=== PATIENT | male | born 1940 | race African-American/Black ===

== ENCOUNTER 2019-01-21 08:53 | Outpatient (CLI) | payer MEDICARE, MEDICAID ==
[2019-01-21] MEDS ORDERED: Gadobenate Dimeglumine 529 MG/1 ML (20ML VIAL) ONE (09:00)
--- NOTE | 2019-01-21 12:20 | MRI ---
MRI BRAIN WITH AND WITHOUT CONTRAST: Date: 01/21/19 INDICATION: Intracranial mass. Reference made to CT head dated 01/08/19. FINDINGS: There is normal size ventricular system. Moderate chronic microvascular ischemic disease of the cereb ral white matter. There is mild hemosiderin deposition localizing to the posterior right parietal lob e, as well as insinuating within the parietooccipital temporal sulci. There is an enhancing, round ex tra-axial mass overlying the anteromedial left parietal convexity, with a broad dural base measuring 11.0 mm craniocaudal x 11.0 mm transverse x 10.0 mm AP. Incidental note of mucosal thickening and retention cyst formation of paranasal sinuses. There is vinay ateral mastoid fluid signal. Visualized skull base flow-voids are patent. IMPRESSION: 1. Small anteromedial left parietal convexity meningioma. 2. Hemosiderin deposition of the posterior right cerebral hemisphere and within overlying cerebral s ulci favoring sequelae from remote hemorrhage. Recommend clinical correlation in this regard. 3. Moderate chronic microvascular ischemic disease. POS: [facility]
== END 2019-01-21 08:54 | disposition home or self-care (01) ==
LOC: SCSMRI 08:53
PROVIDERS: ATTEND Family Medicine
DX: D32.9 Benign neoplasm of meninges, unspecified (principal); G93.89 Other specified disorders of brain; I67.82 Cerebral ischemia
CPT/HCPCS: 70553; A9577

== ENCOUNTER 2019-03-13 12:30 | Outpatient (CLI) | payer MEDICARE, MEDICAID ==
--- NOTE | 2019-03-13 14:55 | RAD ---
CERVICAL SPINE: Lateral views obtained. 3 views presented in neutral, flexion, and extension positions. INDICATION: Recent fall with neck pain. FINDINGS: Degenerative changes of the cervical spine noted with anterior osteophytes. Loss of disc space at C3- 4. Loss of height with wedging involving the C4 and C5 vertebra. Vertebra below C5 are poorly evaluat ed due to shoulder attenuation. No abnormal subluxation identified with flexion or extension. 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 POS: [facility]
--- NOTE | 2019-03-13 17:28 | MRI ---
MRI cervical spine noncontrast HISTORY: Neck pain. Recent injury. M 54.12, R 26.89. FINDINGS: Vertebral body heights are maintained. Bone marrow signal is heterogeneous but nonspecific. C2-3: Mild disc space narrowing. Posterior osteophyte/disc complex with slight effacement of the vent ral aspect of the thecal sac and spinal cord. No abnormal signal within the cord. Severe bilateral foraminal stenosis. C3-4: Large right posterolateral osteophyte/disc complex, prominently compressing the right ventral a spect of the spinal cord. Within the right side of the spinal cord just above the level of the compression, a vertically oriented somewhat ill-defined focus of increased T2 signal measures up to 0 .4 cm length. Severe bilateral foraminal stenoses. C4-5: Disc space narrowing and minimal degenerative spondylolisthesis. Posterior osteophyte/disc comp shell greater to the right, compressing the ventral and right ventral aspect of the spinal cord. No abnormal signal at this level. Severe right and moderate left foraminal stenoses. C5-6: Posterior osteophyte/disc complex with minimal effacement of the ventral aspect of the spinal c ord, greater to the left of midline. No abnormal signal within the cord. Severe bilateral foraminal stenoses. C6-7: Posterior osteophyte/disc complex with minimal effacement of the ventral aspect of the spinal c ord. Mild to moderate bilateral foraminal stenoses. C7-T1: Osteophytosis. Central canal is patent. Moderate left foraminal stenosis. T1-T2: Minimal degenerative spondylolisthesis. Prominent posterior disc protrusion with significant c ompression of the spinal cord and severe central canal stenosis. No definite myelomalacia at this level. Severe bilateral foraminal stenoses. T2-3: Disc space narrowing. Posterior osteophyte/disc complex and circumferential degenerative change s. Very severe stenosis of the central canal. Severe bilateral foraminal stenoses. IMPRESSION: Severe multilevel degenerative changes throughout the cervical spine and upper thoracic s pine as detailed above. Spinal cord compression greatest at the C3-4 level where there is a small focus of myelomalacia within the right side of the spinal cord. Severe central canal and foraminal stenoses are also present at the T1-2 and T2-3 levels of the parti ally visualized upper thoracic spine.
== END 2019-03-13 12:31 | disposition home or self-care (01) ==
LOC: SCSMRI 12:30
PROVIDERS: ATTEND Neurological Surgery
DX: M47.22 Other spondylosis with radiculopathy, cervical region (principal); R26.89 Other abnormalities of gait and mobility; M50.120 Mid-cervical disc disorder, unspecified level; M46.02 Spinal enthesopathy, cervical region; M48.04 Spinal stenosis, thoracic region; G95.89 Other specified diseases of spinal cord; G95.20 Unspecified cord compression; M47.814 Spondylosis without myelopathy or radiculopathy, thoracic region
CPT/HCPCS: 72040; 72141

== ENCOUNTER 2019-07-07 10:07 | Outpatient (CLI) | payer MEDICARE, MEDICAID ==
[~2019-07-07 10:07] MED LIST: Gadobenate Dimeglumine 529 MG/1 ML (20ML VIAL) ONE
--- NOTE | 2019-07-07 15:41 | MRI ---
MRI BRAIN WITH AND WITHOUT CONTRAST: DATE: 07/07/2019 HISTORY: 78-year-old male follow-up meningioma COMPARISON: 01/21/2019 TECHNIQUE: Multiplanar, multisequence MRI of the brain performed pre- and post-IV injection of gadolinium based contrast agent. FINDINGS: There is a homogeneously enhancing round approximately 1.3 x 1.2 x 0.9 cm extra-axial mass abutting t he left side of the upper interhemispheric falx, and abutting the superior sagittal sinus. Allowing for slight differences in cursor placement, it has not changed. There is no adjacent vasogenic edema. No dural venous sinus thrombosis. No recent or remote intra-axial hemorrhage. Moderate chronic ischemic white matter changes of the cerebrum. 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 The meningioma has restricted diffusion, but there is no restricted diffusion in the brain parenchyma. No interval change overall. IMPRESSION: 1) small left para fall seen meningioma. 2.) Moderate chronic ischemic white matter changes due to microvascular atherosclerosis. 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 4) no interval change overall.
== END 2019-07-07 10:08 | disposition home or self-care (01) ==
LOC: SCSMRI 10:07
PROVIDERS: ATTEND Neurological Surgery
DX: D33.2 Benign neoplasm of brain, unspecified (principal)
CPT/HCPCS: 70553; 82565; A9577

== ENCOUNTER 2023-06-04 12:32 | Outpatient (CLI) | payer MEDICARE, MEDICAID | END 2023-06-04 12:33 | disposition home or self-care (01) | LOC: ULT 12:32 | PROVIDERS: ATTEND Internal Medicine | DX: N50.82 Scrotal pain (principal); N43.3 Hydrocele, unspecified; I86.1 Scrotal varices; R93.89 Abnormal findings on diagnostic imaging of other specified body structures | CPT/HCPCS: 36415; 76870; 80053; 80061; 82043; 83036; 85025; 87077; 87086; 93976 ==

== ENCOUNTER 2023-12-23 16:00 | Outpatient (CLI) | payer MEDICAID, OTHER | END 2023-12-23 16:01 | disposition home or self-care (01) | LOC: SLEEPLAB 16:00 | PROVIDERS: ATTEND Internal Medicine | DX: G47.33 Obstructive sleep apnea (adult) (pediatric) (principal); R09.02 Hypoxemia; E11.9 Type 2 diabetes mellitus without complications; I25.10 Atherosclerotic heart disease of native coronary artery without angina pectoris; R06.83 Snoring; E66.9 Obesity, unspecified; Z68.35 Body mass index [BMI] 35.0-35.9, adult | CPT/HCPCS: 95800 ==